=== PATIENT | male | born 1965 | race Two or more races ===

== ENCOUNTER 2016-12-25 15:31 | Emergency (ER) | payer OTHER ==
[~2016-12-25] VITALS: Ht 167.6 cm; Wt 70.8 kg
[~2016-12-25 15:31] MED LIST: AUGMENTIN 875-1 EAC1 ORAL; BACTROBAN NASAL1 GM NASAL; COLACE100 MG ORAL; GEMFIBROZIL600 M1 PO; IBUPROFEN600 MG ORAL; MILK OF MA400 MG/51 ORAL; NKM; NORCO; NORCO 5-325 TA1 EACH ORAL; NORCO 7.5/3251 EA ORAL; ONDANSETRON ODT4 MG ORAL; PROTONIX40 MG ORAL; TYLENOL 8 HOUR650 M1 ORAL; UNOBMED; VICODIN; VICODIN ES 7.51 EAC1 ORAL; ZOFRAN4 MG PO
[2016-12-25 16:01] VITALS: BP 147/96
[2016-12-25] MEDS ORDERED: Ketorolac 30mg Inj IV ONE (16:30)
[2016-12-25] MEDS ORDERED: Morphine Sulfate 4mg/ml Inj IVP ONE (16:30)
[2016-12-25 16:54] LABS: BASOPHILS % (AUTO) 0.9 % (0.0-2.0); EOSINOPHILS % (AUTO) 1.2 % (0.0-3.0); LYMPHOCYTES % (AUTO) 38.7 % (20.0-45.0); MEAN CORPUSCULAR HEMOGLOBIN 33.6 PG (27.0-31.0); MEAN CORPUSCULAR HGB CONC 35.7 G/DL (32.0-36.0); MEAN CORPUSCULAR VOLUME 94 FL (80-99); MEAN PLATELET VOLUME 6.2 FL (6.5-10.1); MONOCYTES % (AUTO) 6.7 % (1.0-10.0); NEUTROPHILS % (AUTO) 52.4 % (45.0-75.0); PLATELET COUNT 255 K/UL (150-450); RED BLOOD COUNT 4.95 M/UL (4.70-6.10); RED CELL DISTRIBUTION WIDTH 11.3 % (11.6-14.8); WHITE BLOOD COUNT 5.5 K/UL (4.8-10.8)
[2016-12-25 17:16] LABS: ALANINE AMINOTRANSFERASE 60 U/L (3-41); ALBUMIN/GLOBULIN RATIO 1.2 (1.0-2.7); ANION GAP 11 (5-15); ASPARTATE AMINO TRANSFERASE 54 U/L (5-40); CALCIUM 9.3 mg/dL (8.6-10.2); CARBON DIOXIDE 27 mEQ/L (20-30); CHLORIDE 99 mEQ/L (98-107); CREATININE 0.9 mg/dL (0.7-1.2); GLOMERULAR FILTRATION RATE > 60 mL/min (>60); HEMOLYSIS 14; LIPASE 9 U/L (< 60); POTASSIUM 4.5 mEQ/L (3.4-4.9); SODIUM 137 mEQ/L (135-145); TOTAL PROTEIN 7.5 g/dL (6.6-8.7)
[2016-12-25 19:29] LABS: APPEARANCE,URINE CLEAR; KETONES,URINE NEGATIVE (NEGATIVE); LEUKOCYTE ESTERASE ,URINE NEGATIVE (NEGATIVE); NITRITE,URINE NEGATIVE (NEGATIVE); PH,URINE 7 (4.5-8.0); PROTEIN,URINE NEGATIVE (NEGATIVE); UROBILINOGEN,URINE NORMAL MG/DL (0.0-1.0)
[2016-12-25] MEDS ORDERED: CYCLOBENZAPRINE10 MG ORAL (19:35)
[2016-12-25] MEDS ORDERED: ACETAMINOPHEN-1 EAC1 ORAL (19:35)
[2016-12-25 19:45] VITALS: BP 138/76
--- NOTE | 2016-12-26 08:50 | Diagnostic Imaging Report ---
Clinical Indication: Right mid abdominal pain Technique: No oral contrast utilized, per emergency room physician request IV administration nonionic contrast. Venous phase spiral acquisition obtained through the abdomen and pelvis. Multiplanar reconstructions were generated. Total dose length product 640 mGycm. CTDIvol(s) 11 mGy. Dose reduction achieved using automated exposure control Comparison: 09/10/2015 Findings: There is a calcification measuring approximately 3 mm in diameter projecting at or near the ureterovesical junction. This is not evident previously. There is no evidence of hydronephrosis, hydroureter, or delay in renal excretory function. Also, no intrarenal calculi are seen on the prior exam. No focal renal abnormality demonstrated. No intrarenal calculi demonstrated on either side. As previously, the appendix is not visualized, but no findings to suggest acute appendicitis are evident. There is colonic diverticulosis. No evidence of diverticulitis. Distal esophagus, stomach, duodenum are unremarkable. No free or loculated intraperitoneal air or fluid. No small bowel distention. Previously demonstrated distended fluid-filled small bowel loops are not evident currently. There is a tiny fat-containing umbilical hernia again demonstrated The liver demonstrates a relatively larger left lobe, stable. The gallbladder, bile ducts, pancreas, spleen, adrenals are unremarkable. No mesenteric or retroperitoneal mass or adenopathy. No pelvic mass or adenopathy. The prostate is somewhat enlarged, contains calcifications. The included lung bases are clear. The bones are unremarkable except for an old healed left 10th rib fracture deformity.. Impression: 3 mm calculus in the region of the left ureterovesical junction, new since previous study of 09/10/2015. Most likely a nonobstructive distal left ureteral calculus. Note that there is no hydronephrosis, hydroureter, or left and renal excretory function Colonic diverticulosis. No evidence of diverticulitis Incidental findings as noted, including prostatomegaly, calcification in the prostate, small fat-containing umbilical hernia, old healed left 10th rib fracture. This agrees with the preliminary interpretation provided overnight by [facility]erad[facility] service. The CT scanner at [facility] is accredited by the [employer] and the scans are performed using protocols designed to limit radiation exposure to as low as reasonably achievable to attain images of sufficient resolution adequate for diagnostic evaluation.
--- NOTE | 2016-12-27 08:53 | Emergency Room Report ---
History of Present Illness General Chief Complaint: Abdominal Pain Source: Patient Present Illness HPI 51-year-old male presents ED complaining of pain. Patient states pain started approximate 4 days ago. Pain is right midabdomen, sharp, 8/10, nonradiating. He states pain has been getting worse. Denies nausea or vomiting. Denies fevers or chills. Denies chest pain shortness of breath. No other aggravating relieving factors. Denies any other associated symptoms Allergies: Coded Allergies: No Known Allergies (Verified , 07/09/10) Patient History Past Medical History: none Past Surgical History: none Pertinent Family History: none Social History: Denies: smoking, alcohol use, drug use Immunizations: UTD Reviewed Nursing Documentation: PMH: Agreed, PSxH: Agreed Nursing Documentation-PMH Hx Cardiac Problems: Yes Hx Hypertension: Yes Hx Diabetes: No - elevated BS at times Hx Cancer: No Hx Gastrointestinal Problems: Yes - pancreatitis Hx Neurological Problems: No Review of Systems All Other Systems: negative except mentioned in HPI Physical Exam Vital Signs Date Time Temp Pulse Resp B/P (MAP) Pulse Ox O2 Delivery O2 Flow Rate FiO2 12/25/16 15:46 98.1 84 18 147/96 98 Room Air Sp02 EP Interpretation: reviewed, normal General Appearance: no apparent distress, alert, GCS 15, non-toxic Head: normocephalic, atraumatic Eyes: bilateral eye normal inspection, bilateral eye PERRL ENT: hearing grossly normal, normal pharynx, no angioedema, normal voice Neck: full range of motion, supple/symm/no masses Respiratory: chest non-tender, lungs clear, normal breath sounds, speaking full sentences Cardiovascular #1: regular rate, rhythm, no edema Cardiovascular #2: 2+ carotid (R), 2+ carotid (L), 2+ radial (R), 2+ radial (L) , 2+ dorsalis pedis (R), 2+ dorsalis pedis (L) Gastrointestinal: normal bowel sounds, soft, non-distended, no guarding, no rebound, tenderness - R mid abdomen Rectal: deferred Genitourinary: normal inspection, no CVA tenderness Musculoskeletal: back normal, gait/station normal, normal range of motion, non- tender Neurologic: alert, oriented x3, responsive, motor strength/tone normal, sensory intact, speech normal Psychiatric: judgement/insight normal, memory normal, mood/affect normal, no suicidal/homicidal ideation Reflexes: 3+ bicep (R), 3+ bicep (L), 3+ tricep (R), 3+ tricep (L), 3+ knee (R) , 3+ knee (L) Skin: normal color, no rash, warm/dry, well hydrated Lymphatic: no adenopathy Medical Decision Making Diagnostic Impression: Primary Impression: Abdominal pain Qualified Codes: R10.31 - Right lower quadrant pain Additional Impression: Drug-seeking behavior ER Course Hospital Course 51-year-old M presents to ED with abdominal pain Differential diagnosis includes-appendicitis, cholecystitis, small bowel obstruction, gastritis, Clinical course Patient placed on stretcher. After initial history and physical I ordered labs , IV fluids, pain medications and CT scan Labs - no leukocytosis, electrolyes ok, LFTs normal CT scan shows no acute pathology Discussed findings with the patient. I believe patient be safely discharged at this time with outpatient followup. Patient states pain started after lifting heavy objects. While there is no evidence of hernia pain could be likely abdominal wall strain. We'll recommend treating as muscle strain Cursing later informed me that patient did request Dilaudid when I ordered pain medication. There is concern for drug-seeking behavior I feel this is a highly complex case requiring extensive working including EKG/ Rhythm strip, Xray/CT/US, Blood/urine lab work, repeat exams while in ED, and administration of strong opiates/narcotics for pain control, admission to hospital or close patient follow up. Diagnosis - abdominal pain, drug-seeking behavior Stable and discharged to home. Followup with PMD. Return to ED if symptoms recur or worsen Labs Test 12/25/16 16:35 12/25/16 19:00 White Blood Count 5.5 K/UL (4.8-10.8) Red Blood Count 4.95 M/UL (4.70-6.10) Hemoglobin 16.6 G/DL (14.2-18.0) Hematocrit 46.6 % (42.0-52.0) Mean Corpuscular Volume 94 FL (80-99) Mean Corpuscular Hemoglobin 33.6 PG (27.0-31.0) Mean Corpuscular Hemoglobin Concent 35.7 G/DL (32.0-36.0) Red Cell Distribution Width 11.3 % (11.6-14.8) Platelet Count 255 K/UL (150-450) Mean Platelet Volume 6.2 FL (6.5-10.1) Neutrophils (%) (Auto) 52.4 % (45.0-75.0) Lymphocytes (%) (Auto) 38.7 % (20.0-45.0) Monocytes (%) (Auto) 6.7 % (1.0-10.0) Eosinophils (%) (Auto) 1.2 % (0.0-3.0) Basophils (%) (Auto) 0.9 % (0.0-2.0) Sodium Level 137 mEQ/L (135-145) Potassium Level 4.5 mEQ/L (3.4-4.9) Chloride Level 99 mEQ/L (98-107) Carbon Dioxide Level 27 mEQ/L (20-30) Anion Gap 11 (5-15) Blood Urea Nitrogen 12 mg/dL (7-23) Creatinine 0.9 mg/dL (0.7-1.2) Estimat Glomerular Filtration Rate > 60 mL/min (>60) Glucose Level 110 mg/dL (74-106) Calcium Level 9.3 mg/dL (8.6-10.2) Total Bilirubin 0.4 mg/dL (0.0-1.2) Aspartate Amino Transf (AST/SGOT) 54 U/L (5-40) Alanine Aminotransferase (ALT/SGPT) 60 U/L (3-41) Alkaline Phosphatase 136 U/L (40-129) Total Protein 7.5 g/dL (6.6-8.7) Albumin 4.2 g/dL (3.5-5.2) Globulin 3.3 g/dL Albumin/Globulin Ratio 1.2 (1.0-2.7) Lipase 9 U/L (< 60) Urine Color Pale yellow Urine Appearance Clear Urine pH 7 (4.5-8.0) Urine Specific Archer 1.010 (1.005-1.035) Urine Protein Negative (NEGATIVE) Urine Glucose (UA) Negative (NEGATIVE) Urine Ketones Negative (NEGATIVE) Urine Occult Blood Negative (NEGATIVE) Urine Nitrite Negative (NEGATIVE) Urine Bilirubin Negative (NEGATIVE) Urine Urobilinogen Normal MG/DL (0.0-1.0) Urine Leukocyte Esterase Negative (NEGATIVE) CT/MRI/US Diagnostic Results CT/MRI/US Diagnostic Results : Imaging Test Ordered: CT A/P Impression 3 mm calculus in the region of the left ureterovesical junction, new since previous study of 09/10/2015. Most likely a nonobstructive distal left ureteral calculus. Note that there is no hydronephrosis, hydroureter, or left and renal excretory function Colonic diverticulosis. No evidence of diverticulitis Incidental findings as noted, including prostatomegaly, calcification in the prostate, small fat-containing umbilical hernia, old healed left 10th rib fracture. Last Vital Signs Date Time Temp Pulse Resp B/P (MAP) Pulse Ox O2 Delivery O2 Flow Rate FiO2 12/25/16 19:45 98.1 78 18 138/76 98 Room Air Status: improved Disposition: HOME, SELF-CARE Condition: Stable Scripts Cyclobenzaprine Hcl* (FLEXERIL*) 10 Mg Tablet 10 MG ORAL TID Y for Muscle Spasm, #20 TAB Prov: LUÍS JAVIER M.D. 12/25/16 Acetaminophen With Codeine (T#3) (TYLENOL #3 TAB*) Y Tab 1 TAB ORAL Q8H Y for For Pain, #20 TAB Prov: LUÍS JAVIER M.D. 12/25/16 Referrals: ADWOA MARIE,REFERRING (PCP) Patient Instructions: Abdominal Pain, Adult LUÍS JAVIER M.D. Dec 27, 2016 08:53
== END 2016-12-25 19:43 | disposition home or self-care (01) ==
LOC: EMR 17:42
DX: R10.31 Right lower quadrant pain (principal); I10 Essential (primary) hypertension; Z86.79 Personal history of other diseases of the circulatory system; K85.90 Acute pancreatitis without necrosis or infection, unspecified; Z76.5 Malingerer [conscious simulation]; N20.1 Calculus of ureter
CPT/HCPCS: 36415; 74177; 80053; 81003; 83690; 85025; 96361; 96374; 96375; 99284; J1885; J2270; Q9967

== ENCOUNTER 2017-11-07 19:07 | Emergency (ER) | payer OTHER ==
[~2017-11-07] VITALS: Ht 167.6 cm; Wt 71.7 kg
[~2017-11-07 19:07] MED LIST changes: +ACETAMINOPHEN-1 EAC1 ORAL; +CYCLOBENZAPRINE10 MG ORAL
[2017-11-07 19:20] VITALS: BP 105/72
[2017-11-07] MEDS ORDERED: CORTISPORIN EAR10 ML RIGHT EAR (19:38)
--- NOTE | 2017-11-07 19:39 | Emergency Room Report ---
History of Present Illness General Chief Complaint: Earache Source: Patient Present Illness HPI 52-year-old male patient presents ER complaining of right ear pain for the past 3 days. Reports discharge noted. denies bleeding. Denies hearing loss. Denies other acute symptoms at this time. Denies fever, chest pain, shortness of breath. Denies FAM, vomiting, vertigo. Allergies: Coded Allergies: No Known Allergies (Verified , 07/09/10) Patient History Past Medical History: see triage record Reviewed Nursing Documentation: PMH: Agreed; PSxH: Agreed Nursing Documentation-PMH Hx Cardiac Problems: Yes Hx Hypertension: Yes Hx Diabetes: No - elevated BS at times Hx Cancer: No Hx Gastrointestinal Problems: Yes - pancreatitis Hx Neurological Problems: No Review of Systems All Other Systems: negative except mentioned in HPI Physical Exam Vital Signs Date Time Temp Pulse Resp B/P (MAP) Pulse Ox O2 Delivery O2 Flow Rate FiO2 11/07/17 19:12 98.1 92 18 105/72 98 Room Air 98.1 Sp02 EP Interpretation: reviewed, normal General Appearance: well appearing, no apparent distress, alert, GCS 15, non- toxic Head: normocephalic, atraumatic ENT: hearing grossly normal, normal pharynx, no angioedema, normal voice, TMs + canals normal - left, uvula midline, moist mucus membranes, other - right eaR : pain with ear pulling, purulent material in ear canal, mild edema noted, TM visualized Neck: full range of motion Respiratory: lungs clear, normal breath sounds, no rhonchi, no respiratory distress, no accessory muscle use, no wheezing, speaking full sentences Cardiovascular #1: regular rate, rhythm, no edema Musculoskeletal: back normal, digits/nails normal, gait/station normal, normal range of motion, non-tender Neurologic: alert, oriented x3, responsive, motor strength/tone normal, sensory intact Psychiatric: mood/affect normal Skin: no rash Medical Decision Making PA Attestation Dr. Diaz is my supervising Physician whom patient management has been discussed with. Diagnostic Impression: Primary Impression: Otitis externa ER Course Pt presents to ED c/o ear pain. DDX considered but are not limited to rhinitis, sinusitis, otitis media, otitis externa, cellulitis, mastoiditis, cerumen impaction. Low suspicion for mastoiditis, no swelling or erythema noted posterior to ear, no TTP. VITAL SIGNS are WNL, patient is afebrile. ER COURSE: pain with ear pulling, purulent discharge noted in right ear, TM visible, nonerythematous, no TM rupture, likely otitis externa. Follow-up with primary care provider and discuss referral to ENT. Will provide medications at discharge. DISCHARGE: -Rx provided for Neomycin/polmyxin B Patient able to answer questions. Patient is in no acute distress, nontoxic appearing, stable and ready for discharge to home. At this time pt is stable for d/c to home. Patient to take medications as instructed Will provide with patient care instructions and any necessary prescriptions. Care plan and follow-up instructions provided. Patient instructed to follow-up with primary care in 3 - 5 days. Patient provided with list of clinics to establish care if unable to contact current PCP. Patient questions asked and answered. ER precautions given. Patient instructed to return to ER immediately for any new or worsening of symptoms including but not limited to increasing SOB, persistent fever. - Please note that this Emergency Department Report was dictated using [employer] machine operator technology software, occasionally this can lead to erroneous entry secondary to interpretation by the dictation equipment. Last Vital Signs Date Time Temp Pulse Resp B/P (MAP) Pulse Ox O2 Delivery O2 Flow Rate FiO2 11/07/17 19:12 98.1 92 18 105/72 98 Room Air 98.1 Disposition: HOME, SELF-CARE Condition: Stable Scripts Neomycin/Polymyxin B Sulf/Hc* (CORTISPORIN EAR SOLUTION*) 10 Ml Solution 4 DROP RIGHT EAR QID, #10 ML 0 Refills Prov: Ga Penaloza 11/07/17 Patient Instructions: Otitis Externa Additional Instructions: Followup with primary care provider in 3 -5 days. Followup with ENT specialist. Take medications as directed. Patient questions asked and answered. ER precautions given, patient instructed to return to ER immediately for any new or worsening of symptoms. Ga Penaloza Nov 07, 2017 19:39
[2017-11-07 20:16] VITALS: BP 105/72
== END 2017-11-07 20:16 | disposition home or self-care (01) ==
LOC: EMR 20:16
DX: H60.91 Unspecified otitis externa, right ear (principal); I10 Essential (primary) hypertension
CPT/HCPCS: 99283

== ENCOUNTER 2018-06-22 21:41 | Emergency (ER) | payer OTHER ==
[~2018-06-22] VITALS: Ht 167.6 cm; Wt 72.6 kg
[~2018-06-22 21:41] MED LIST changes: +CORTISPORIN EAR10 ML RIGHT EAR
[2018-06-22] MEDS ORDERED: NKM (22:00)
[2018-06-22 22:10] VITALS: BP 123/84
--- NOTE | 2018-06-22 22:10 | NUR ---
ED Nurse Note: Pt arrived ED from Home, c/o left side of abdominal pain today 07/15. Pt is A/O X 4. Vital signs stable at this time, waitng for orders.
[2018-06-22 22:47] VITALS: BP 121/82
--- NOTE | 2018-06-22 22:47 | NUR ---
ER DISCHARGE NOTE: Patient is cleared to be discharged per Renata. Pt is aox4 on room air with stable vital signs. Pt was given dc and prescription instructions, pt was able to verbalize understanding. Pt's ID band removed. Pt is able to ambulate with steady gait, pt took all belongings.
--- NOTE | 2018-06-23 02:15 | Emergency Room Report ---
History of Present Illness General Chief Complaint: Abdominal Pain Source: Patient Present Illness HPI Patient presents with reports of abnormal blood work patient reports that off- and-on over the past several months he has had some discomfort diffusely Patient reports that he had blood work at his primary physician's office in February And now presents for evaluation of this Patient is here with another patient who is being seen Denies any active abdominal pain denies any vomiting denies any diarrhea On review of medical records patient does have a history of heavy alcohol abuse Patient presents blood work revealing AST MALT mildly elevated also GGT Allergies: Coded Allergies: No Known Allergies (Verified , 07/09/10) Patient History Past Medical History: see triage record Pertinent Family History: none Reviewed Nursing Documentation: PMH: Agreed; PSxH: Agreed Nursing Documentation-PMH Past Medical History: No History, Except For Hx Cardiac Problems: Yes Hx Hypertension: Yes Hx Diabetes: No - elevated BS at times Hx Cancer: No Hx Gastrointestinal Problems: Yes - pancreatitis Hx Neurological Problems: No Review of Systems All Other Systems: negative except mentioned in HPI Physical Exam Vital Signs Date Time Temp Pulse Resp B/P (MAP) Pulse Ox O2 Delivery O2 Flow Rate FiO2 06/22/18 21:54 98.1 95 18 126/88 96 Room Air Sp02 EP Interpretation: reviewed, normal General Appearance: well appearing, no apparent distress Head: normocephalic, atraumatic Eyes: bilateral eye PERRL, bilateral eye EOMI ENT: hearing grossly normal, normal pharynx, TMs + canals normal, uvula midline Neck: full range of motion, supple, no meningismus, no bony tend Respiratory: lungs clear, normal breath sounds, no rhonchi, no respiratory distress, no retraction, no accessory muscle use Cardiovascular #1: normal peripheral pulses, regular rate, rhythm, no edema, no gallop, no JVD, no murmur Gastrointestinal: normal bowel sounds, non tender, soft, no mass, no organomegaly, non-distended, no guarding, no hernia, no pulsatile mass, no rebound Genitourinary: no CVA tenderness Musculoskeletal: normal inspection Neurologic: oriented x3, responsive, bird tender III-XII nml as tested, motor strength/ tone normal, sensory intact Psychiatric: mood/affect normal Skin: normal color, no rash, warm/dry, palpation normal Lymphatic: normal inspection, no adenopathy Medical Decision Making Diagnostic Impression: Primary Impression: elevated liver enzymes ER Course Patient's examination is fairly benign Patient presents with blood work that was obtained at outside facility This was back in February Reviewing medical records reveals patient has had elevated liver function test on multiple examinations patient has had heavy alcohol abuse and 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 Patient Instructions: Alcoholic Liver Disease, Diet and Hepatitis Additional Instructions: The test results that you have from February 19 do show elevated liver enzyme test. These findings do require close outpatient follow-up by internal medicine and possibly GI specialty. There is no emergency intervention at this time and you require close follow-up Patient is provided with the discharge instructions notified to follow up with primary doctor in the next 2-3 days otherwise return to the er with any worsening symptoms. Please note that this report is being documented using [employer] technology. This can lead to erroneous entry secondary to incorrect interpretation by the dictating instrument. Harvinder Yanez DO Jun 23, 2018 02:15
== END 2018-06-22 22:47 | disposition home or self-care (01) ==
LOC: EMR 22:15
DX: R74.8 Abnormal levels of other serum enzymes (principal); I10 Essential (primary) hypertension
CPT/HCPCS: 99281

== ENCOUNTER 2018-11-29 14:44 | Emergency (ER) | payer OTHER ==
[~2018-11-29] VITALS: Ht 167.6 cm; Wt 75.7 kg
--- NOTE | 2018-11-29 15:01 | NUR ---
ED Nurse Note: Patient walked in c/o dysuria x 2 days. Patient also reports ABD pain. Pt rates pain at 10/10. patient is alert and oriented x4, patient is complaining of ear pain for the past 2 days. Denies any nausea and vomiting.
--- NOTE | 2018-11-29 15:02 | NUR ---
ED Nurse Note: upon further inspection, patient presents with redness on the tip of his penis, complains of 10/10 pain.
[2018-11-29 15:09] VITALS: BP 128/88
--- NOTE | 2018-11-29 15:19 | Emergency Room Report ---
History of Present Illness General Chief Complaint: Male Urogenital Problems Source: Patient Present Illness [facility] Disclaimer: Please note that this report is being documented using DRAGON technology. This can lead to erroneous entry secondary to incorrect interpretation by the dictating instrument. HPI: 53-year-old otherwise healthy male presents for evaluation of dysuria. Symptoms have been present for several days though he cannot physically say how long. He describes taint pain at the tip of his penis and while passing urine is a burning sensation. He denies hematuria or injury. Denies pain in the testicles or swelling of the testicles. He notes generalized abdominal pain but denies nausea, vomiting. He said he had a loose bowel movement earlier today but denies any hematochezia or melena. Denies fevers, chills, chest pain , shortness of breath. Noted an earache and sore throat over the past few days but it seems to be resolving. 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 Denies pain or drainage in the right ear. He took 3 tablets of amoxicillin that he got from a family member but otherwise is taking no medications. PMH: Denies PSH: Denies Allergies: Denies Social Hx: Denies drug or alcohol abuse Allergies: Coded Allergies: No Known Allergies (Verified , 07/09/10) Nursing Documentation-PMH Hx Cardiac Problems: Yes Hx Hypertension: Yes Hx Diabetes: No - elevated BS at times Hx Cancer: No Hx Gastrointestinal Problems: Yes - pancreatitis Hx Neurological Problems: No Review of Systems All Other Systems: negative except mentioned in HPI Physical Exam Vital Signs Date Time Temp Pulse Resp B/P (MAP) Pulse Ox O2 Delivery O2 Flow Rate FiO2 11/29/18 14:57 98.4 102 15 128/88 (101) 98 Room Air General: Awake and alert, no acute distress HEENT: NC/AT. EOMI. uvula is midline. Left tympanic membrane is opacified slightly bulging, external canal is somewhat erythematous but no significant edema. Right tympanic membrane is pearly christopher, nonbulging, clear landmarks, no erythema or edema of the external canal. Pharynx is slightly erythematous but no significant edema. Neck: Supple, trachea midline Resp: Normal work of breathing. Abdomen: Abdomen is soft, nondistended. Diffusely tender to the palpation particularly in the right upper quadrant and epigastrium. No rebound. No masses. : Uncircumcised male. Testes in anatomic position. No testicular swelling or overlying skin changes. There is no blood at the urethral meatus. Foreskin is difficult to retract and painful to the patient. There is no discharge or surrounding inflammation of the glans or of the distal foreskin. Skin: Intact. No abrasions, laceration or rash over the exposed skin MSK: Normal tone and bulk. Moving all extremities. No obvious deformity. Neuro: Awake and alert. Mentating appropriately. Back/Spine: Mild CVA tenderness bilaterally. Medical Decision Making Diagnostic Impression: Primary Impression: Otitis media Additional Impressions: Phimosis Elevated liver enzymes ER Course 53-year-old male presents for evaluation of several days dysuria and pain while retracting his foreskin as well as upper respiratory symptoms of several days and left ear fullness and pain. He has had no hearing in his right ear for several years and follows with an ENT.. Differential includes but is not limited to phimosis, balanitis, urinary tract infection, pyelonephritis, upper respiratory illness, otitis media, gastroenteritis, gastritis, hepatitis, cholecystitis, biliary colic. We will start broad metabolic and infectious work -up. Likely, this is a pyelonephritis with mild phimosis and the patient is likely candidate for discharge and outpatient treatment. He will require treatment for left otitis media as well. Laboratory Tests Test 11/29/18 15:15 White Blood Count 8.6 K/UL (4.8-10.8) Red Blood Count 4.97 M/UL (4.70-6.10) Hemoglobin 15.6 G/DL (14.2-18.0) Hematocrit 46.1 % (42.0-52.0) Mean Corpuscular Volume 93 FL (80-99) Mean Corpuscular Hemoglobin 31.3 PG (27.0-31.0) H Mean Corpuscular Hemoglobin Concent 33.8 G/DL (32.0-36.0) Red Cell Distribution Width 11.6 % (11.6-14.8) Platelet Count 307 K/UL (150-450) Mean Platelet Volume 5.6 FL (6.5-10.1) L Neutrophils (%) (Auto) 67.4 % (45.0-75.0) Lymphocytes (%) (Auto) 24.7 % (20.0-45.0) Monocytes (%) (Auto) 6.5 % (1.0-10.0) Eosinophils (%) (Auto) 0.7 % (0.0-3.0) Basophils (%) (Auto) 0.7 % (0.0-2.0) Urine Color Yellow Urine Appearance Clear Urine pH 6.5 (4.5-8.0) Urine Specific [place] 1.015 (1.005-1.035) Urine Protein Negative (NEGATIVE) Urine Glucose (UA) Negative (NEGATIVE) Urine Ketones Negative (NEGATIVE) Urine Blood Negative (NEGATIVE) Urine Nitrite Negative (NEGATIVE) Urine Bilirubin Negative (NEGATIVE) Urine Urobilinogen 1 MG/DL (0.0-1.0) H Urine Leukocyte Esterase 1+ (NEGATIVE) H Urine RBC 0-2 /HPF (0 - 0) H Urine WBC 2-4 /HPF (0 - 0) Urine Squamous Epithelial Cells None /LPF (NONE/OCC) Urine Bacteria Few /HPF (NONE) Sodium Level 138 MMOL/L (136-145) Potassium Level 3.9 MMOL/L (3.5-5.1) Chloride Level 104 MMOL/L (98-107) Carbon Dioxide Level 25 MMOL/L (21-32) Anion Gap 9 mmol/L (5-15) Blood Urea Nitrogen 9 mg/dL (7-18) Creatinine 1.1 MG/DL (0.55-1.30) Estimate Glomerular Filtration Rate > 60 mL/min (>60) Glucose Level 117 MG/DL (74-106) H Calcium Level 8.8 MG/DL (8.5-10.1) Total Bilirubin 0.4 MG/DL (0.2-1.0) Aspartate Amino Transferase (AST) 52 U/L (15-37) H Alanine Aminotransferase (ALT) 81 U/L (12-78) H Alkaline Phosphatase 201 U/L (46-116) H Total Protein 7.5 G/DL (6.4-8.2) Albumin 3.6 G/DL (3.4-5.0) Globulin 3.9 g/dL Albumin/Globulin Ratio 0.9 (1.0-2.7) L Lipase 43 U/L (73-393) L Reevaluation Time: 16:43 Last Vital Signs Date Time Temp Pulse Resp B/P (MAP) Pulse Ox O2 Delivery O2 Flow Rate FiO2 11/29/18 15:09 98.4 85 15 128/88 98 Room Air Reevaluation Impression Lab work is largely unremarkable except for just slightly elevated liver enzymes. This is nonspecific and there only above the upper limit of normal by several points. May be secondary to a viral syndrome given his constellation of symptoms however he will be treated for left-sided otitis media with amoxicillin. Patient has no known allergies. He can follow-up with his ENT and with his PMD for evaluation of his phimosis. We will started him on hydrocortisone cream there is no evidence of balanitis, paraphimosis. He is instructed to maintain proper hygiene and to stretch the foreskin as much as possible. NSAIDs were prescribed. He was instructed to follow-up with his PMD for reevaluation of his abnormal liver function tests as well as reevaluation of his phimosis and possible referral to urology. We discussed reasons to return to the emergency department. He understands and agrees with this treatment plan was discharged home. Disposition: HOME, SELF-CARE Condition: Stable Scripts Amoxicillin (AMOXICILLIN) 875 Mg Tablet 875 MG PO Q12H for 7 Days, TAB 0 Refills Prov: Ishmael Hess MD 11/29/18 Acetaminophen (Tylenol) 325 Mg Tablet 650 MG ORAL Q6H PRN for Prn Pain/Headache/Temp > 101, #30 TAB 0 Refills Prov: Ishmael Hess MD 11/29/18 Hydrocortisone 2% Cream (ANTI-ITCH 2% CREAM) Y Cr 28 GM TP BID for 14 Days, GM Prov: Ishmael Hess MD 11/29/18 Ibuprofen* (MOTRIN*) 600 Mg Tablet 600 MG ORAL Q6H PRN for For Pain, #30 TAB 0 Refills Prov: Ishmael Hess MD 11/29/18 Ishmael Hess MD Nov 29, 2018 15:19
[2018-11-29 15:32] LABS: APPEARANCE,URINE CLEAR; BILIRUBIN, URINE NEGATIVE (NEGATIVE); GLUCOSE, URINE (UA) NEGATIVE (NEGATIVE); KETONES,URINE NEGATIVE (NEGATIVE); LEUKOCYTE ESTERASE ,URINE 1+ (NEGATIVE); NITRITE,URINE NEGATIVE (NEGATIVE); PH,URINE 6.5 (4.5-8.0); PROTEIN,URINE NEGATIVE (NEGATIVE); UROBILINOGEN,URINE 1 MG/DL (0.0-1.0)
[2018-11-29 15:34] LABS: COLOR,URINE YELLOW
[2018-11-29 15:39] LABS: BASOPHILS % (AUTO) 0.7 % (0.0-2.0); EOSINOPHILS % (AUTO) 0.7 % (0.0-3.0); HEMATOCRIT 46.1 % (42.0-52.0); HEMOGLOBIN 15.6 G/DL (14.2-18.0); LYMPHOCYTES % (AUTO) 24.7 % (20.0-45.0); MEAN CORPUSCULAR VOLUME 93 FL (80-99); MONOCYTES % (AUTO) 6.5 % (1.0-10.0); NEUTROPHILS % (AUTO) 67.4 % (45.0-75.0); PLATELET COUNT 307 K/UL (150-450); RED BLOOD COUNT 4.97 M/UL (4.70-6.10); RED CELL DISTRIBUTION WIDTH 11.6 % (11.6-14.8); WHITE BLOOD COUNT 8.6 K/UL (4.8-10.8)
[2018-11-29 15:50] LABS: ANION GAP 9 mmol/L (5-15); BLOOD UREA NITROGEN 9 mg/dL (7-18); CALCIUM 8.8 MG/DL (8.5-10.1); CARBON DIOXIDE 25 MMOL/L (21-32); CHLORIDE 104 MMOL/L (98-107); CREATININE 1.1 MG/DL (0.55-1.30); POTASSIUM 3.9 MMOL/L (3.5-5.1); SODIUM 138 MMOL/L (136-145)
[2018-11-29 15:54] LABS: ALANINE AMINOTRANSFERASE 81 U/L (12-78); ALBUMIN 3.6 G/DL (3.4-5.0); ALBUMIN/GLOBULIN RATIO 0.9 (1.0-2.7); ALKALINE PHOSPHATASE 201 U/L (46-116); ASPARTATE AMINO TRANSFERASE 52 U/L (15-37); BILIRUBIN,TOTAL 0.4 MG/DL (0.2-1.0)
[2018-11-29] MEDS ORDERED: TYLENOL325 MG ORAL (16:37)
[2018-11-29] MEDS ORDERED: IBUPROFEN600 MG ORAL (16:37)
[2018-11-29] MEDS ORDERED: AMOXICILLIN875 MG PO (16:37)
[2018-11-29] MEDS ORDERED: ANTI-ITCH28 G1 TP (16:37)
--- NOTE | 2018-11-29 16:44 | NUR ---
ER DISCHARGE NOTE: Patient is cleared to be discharged per ERMD, pt is aox4, on room air, with stable vital signs. pt was given dc and prescription instructions, pt was able to verbalize understanding, pt id band and iv site removed without complications. pt is able to ambulate with steady gait. pt took all belongings.
[2018-11-29 16:45] VITALS: BP 122/85
== END 2018-11-29 16:46 | disposition home or self-care (01) ==
LOC: EMR 15:17
DX: N47.1 Phimosis (principal); H66.92 Otitis media, unspecified, left ear; R79.89 Other specified abnormal findings of blood chemistry; I10 Essential (primary) hypertension
CPT/HCPCS: 36415; 80053; 81003; 83690; 85025; 99283

== ENCOUNTER 2019-01-11 00:28 | Emergency (ER) | payer OTHER ==
[~2019-01-11] VITALS: Ht 167.6 cm; Wt 74.8 kg
[~2019-01-11 00:28] MED LIST changes: +AMOXICILLIN875 MG PO; +ANTI-ITCH28 G1 TP; +TYLENOL325 MG ORAL
[2019-01-11 00:45] VITALS: BP 150/88
--- NOTE | 2019-01-11 00:45 | NUR ---
ED Nurse Note: pt walked in to ED C/O SOB. sp02 is 99% on room air. pt stated he has episode of SOB from time to time and overall its been going on for many years. pt is alert x4
[2019-01-11] MEDS ORDERED: Lidocaine 2% Visc 15ml soln ORAL ONE (01:00)
[2019-01-11] MEDS ORDERED: Mylanta II UD 30ml ORAL ONE (01:00)
--- NOTE | 2019-01-11 01:05 | NUR ---
ED Nurse Note: urine and blood sample sent down to lab
--- NOTE | 2019-01-11 01:22 | Emergency Room Report ---
History of Present Illness General Chief Complaint: Sore Throat Source: Patient Present Illness HPI This a 53-year-old male with no significant past medical history. He presents with 2 main complaints. First complaint is sore throat. He said this been on for years. Never saw for this. He said he has some hoarseness of his voice and also some shortness of breath. Denies any fever chills but denies any nausea vomiting. Denies any cough and congestion. His second complaint is epigastric pain. This started today. No fever or chills. Similar symptom in the past. He said his liver was abnormal based on previous test. Allergies: Coded Allergies: No Known Allergies (Verified , 07/09/10) Patient History Past Medical History: see triage record, old chart reviewed Past Surgical History: none Pertinent Family History: none Social History: Reports: drug use - History of cocaine abuse Immunizations: other Reviewed Nursing Documentation: PMH: Agreed; PSxH: Agreed Nursing Documentation-PMH Hx Cardiac Problems: Yes Hx Hypertension: Yes Hx Diabetes: No - elevated BS at times Hx Cancer: No Hx Gastrointestinal Problems: Yes - pancreatitis Hx Neurological Problems: No Review of Systems Eye: Denies: eye pain, blurred vision ENT: Reports: throat pain; Denies: ear pain, nose congestion, throat swelling Respiratory: Denies: cough, shortness of breath Cardiovascular: Denies: chest pain, palpitations Gastrointestinal: Reports: abdominal pain; Denies: diarrhea, nausea, vomiting Musculoskeletal: Denies: back pain, joint pain Skin: Denies: rash Neurological: Denies: headache, numbness Endocrine: Denies: increased thirst, increased urine Hematologic/Lymphatic: Denies: easy bruising All Other Systems: negative except mentioned in HPI Physical Exam Vital Signs Date Time Temp Pulse Resp B/P (MAP) Pulse Ox O2 Delivery O2 Flow Rate FiO2 01/11/19 00:35 98.1 88 16 144/88 (106) 96 Room Air Vitals unremarkable Sp02 EP Interpretation: reviewed, normal General Appearance: well appearing, no apparent distress, alert Head: normocephalic, atraumatic Eyes: bilateral eye PERRL, bilateral eye EOMI ENT: hearing grossly normal, normal pharynx Neck: full range of motion, supple, no meningismus Respiratory: chest non-tender, lungs clear, normal breath sounds Cardiovascular #1: regular rate, rhythm, no murmur Gastrointestinal: normal bowel sounds, no mass, no organomegaly, no bruit, non- distended, tenderness - Mild, epigastric Musculoskeletal: back normal, gait/station normal, normal range of motion Neurologic: alert, oriented x3 Psychiatric: mood/affect normal Medical Decision Making Diagnostic Impression: Primary Impression: Sore throat Additional Impressions: Abdominal pain Qualified Codes: R10.13 - Epigastric pain Amphetamine abuse Abnormal liver enzymes ER Course Patient presents with sore throat this been a chronic problem. This may be secondary to reflux. It could also be a neoplastic process. Explained to the patient that he needs to follow-up with his doctor for referral to see ENT or GI doctor. His liver enzyme is chronically elevated. This may be chronic hepatitis, cirrhosis to name a few. He will need to see a specialist for biopsy. No acute process. Patient is comfortable doing better here. Will discharge home. Last Vital Signs Date Time Temp Pulse Resp B/P (MAP) Pulse Ox O2 Delivery O2 Flow Rate FiO2 01/11/19 00:45 98.1 83 16 150/88 96 Room Air Status: improved Disposition: HOME, SELF-CARE Condition: Stable Additional Instructions: Abstain from drugs and alcohol. Follow-up with your doctor in 7 days. You will need for her to see a specialist regarding your abnormal liver enzyme. Return if symptoms worsen. Chance Sue MD Jan 11, 2019 01:22
[2019-01-11 01:55] LABS: APPEARANCE,URINE CLEAR; BILIRUBIN, URINE NEGATIVE (NEGATIVE); COLOR,URINE PALE YELLOW; GLUCOSE, URINE (UA) NEGATIVE (NEGATIVE); KETONES,URINE NEGATIVE (NEGATIVE); LEUKOCYTE ESTERASE ,URINE NEGATIVE (NEGATIVE); NITRITE,URINE NEGATIVE (NEGATIVE); PH,URINE 5 (4.5-8.0); PROTEIN,URINE NEGATIVE (NEGATIVE); UROBILINOGEN,URINE NORMAL MG/DL (0.0-1.0)
[2019-01-11 01:58] LABS: ANION GAP 1 mmol/L (5-15); BLOOD UREA NITROGEN 11 mg/dL (7-18); CALCIUM 9.4 MG/DL (8.5-10.1); CARBON DIOXIDE 32 MMOL/L (21-32); CHLORIDE 105 MMOL/L (98-107); CREATININE 1.1 MG/DL (0.55-1.30); POTASSIUM 4.4 MMOL/L (3.5-5.1); SODIUM 138 MMOL/L (136-145)
[2019-01-11 02:00] LABS: BASOPHILS % (AUTO) 0.7 % (0.0-2.0); EOSINOPHILS % (AUTO) 2.3 % (0.0-3.0); HEMATOCRIT 44.8 % (42.0-52.0); HEMOGLOBIN 15.5 G/DL (14.2-18.0); LYMPHOCYTES % (AUTO) 42.9 % (20.0-45.0); MEAN CORPUSCULAR VOLUME 92 FL (80-99); NEUTROPHILS % (AUTO) 46.1 % (45.0-75.0); PLATELET COUNT 275 K/UL (150-450); RED BLOOD COUNT 4.88 M/UL (4.70-6.10); RED CELL DISTRIBUTION WIDTH 11.5 % (11.6-14.8); WHITE BLOOD COUNT 5.5 K/UL (4.8-10.8)
[2019-01-11 02:03] LABS: ALANINE AMINOTRANSFERASE 79 U/L (12-78); ALBUMIN 3.6 G/DL (3.4-5.0); ALBUMIN/GLOBULIN RATIO 0.9 (1.0-2.7); ALKALINE PHOSPHATASE 200 U/L (46-116); ASPARTATE AMINO TRANSFERASE 52 U/L (15-37); BILIRUBIN,TOTAL 0.3 MG/DL (0.2-1.0)
[2019-01-11 02:22] VITALS: BP 135/84
== END 2019-01-11 02:22 | disposition home or self-care (01) ==
LOC: EMR 00:53
DX: J02.9 Acute pharyngitis, unspecified (principal); R10.13 Epigastric pain; F15.10 Other stimulant abuse, uncomplicated; R74.8 Abnormal levels of other serum enzymes; I10 Essential (primary) hypertension
CPT/HCPCS: 36415; 80053; 80307; 81003; 83690; 85025; Z7502; 99283